=== PATIENT | male | born 1955 | race Caucasian/White ===

== ENCOUNTER 2019-08-16 15:48 | Emergency (ER) | payer OTHER ==
--- NOTE | 2019-08-16 18:45 | EDM.PDOC ---
ED HPI GENERAL MEDICAL PROBLEM - General Chief Complaint: Lower Extremity Injury/Pain Stated Complaint: SURGERY IN OCT NOW IN PAIN Time Seen by Provider: 08/16/19 18:38 Source of Information: Reports: Patient, Family, RN Notes Reviewed History Limitations: Reports: No Limitations - History of Present Illness INITIAL COMMENTS - FREE TEXT/NARRATIVE: 63-year-old gentleman presents emergency department today with concern about a blood clot, he is postop surgical hip replacement about 2months he developed pain in his calf just today and some swelling however all of his symptoms now have resolved at this time. He has no other complaints other than a cough which is new to him he denies any fevers shortness of breath or chest pain - Related Data Allergies Allergy/AdvReac Type Severity Reaction Status Date / Time No Known Allergies Allergy Verified 08/16/19 18:22 Home Meds: Home Meds NK [No Known Home Meds] 08/16/19 [History] Past Medical History - Past Surgical History Musculoskeletal Surgical History: Reports: Arthroscopic Knee, Hip Replacement, Other (See Below) Other Musculoskeletal Surgeries/Procedures:: Elizabeth fusion Social & Family History - Tobacco Use Smoking Status *Q: Never Smoker - Caffeine Use Caffeine Use: Reports: Soda - Recreational Drug Use Recreational Drug Use: No Review of Systems - Review of Systems Review Of Systems: See Below Constitutional: Reports: No Symptoms Respiratory: Reports: Cough Cardiovascular: Reports: No Symptoms Musculoskeletal: Reports: Leg Pain Skin: Reports: No Symptoms ED EXAM, GENERAL - Physical Exam Exam: See Below Free Text/Narrative:: Examination of the right lower extremity and on appreciate any erythema there is no edema the calf is not tight he has no pain with dorsiflexion pedal pulses +2 slight amount of pedal edema appreciated Exam Limited By: No Limitations General Appearance: Alert, WD/WN, No Apparent Distress Throat/Mouth: Normal Inspection, Normal Lips, Normal Teeth, Normal Gums, Normal Oropharynx, Normal Voice, No Airway Compromise Neck: Normal Inspection, Supple, Non-Tender, Full Range of Motion Respiratory/Chest: No Respiratory Distress, Lungs Clear, Normal Breath Sounds, No Accessory Muscle Use, Chest Non-Tender Cardiovascular: Regular Rate, Rhythm, No Murmur Course - Vital Signs Last Recorded V/S: Last Vital Signs Temp 98.1 F 08/16/19 18:24 Pulse 82 08/16/19 18:24 Resp 16 08/16/19 18:24 BP 161/88 H 08/16/19 18:24 Pulse Ox 98 08/16/19 18:24 - Orders/Labs/Meds Orders: Active Orders 24 hr Category Date Time Status Peripheral IV Care [RC] . DIRECTED Care 08/16/19 21:33 Active Iopamidol [Isovue-370 (76%)] Med 08/16/19 22:15 Active 100 ml IV . DIRECTED Sodium Chloride 0.9% [Normal Saline] 1,000 ml Med 08/16/19 21:45 Active IV ASDIRECTED Sodium Chloride 0.9% [Normal Saline] 80 ml Med 08/16/19 22:15 Active IV ASDIRECTED Sodium Chloride 0.9% [Saline Flush] Med 08/16/19 21:32 Active 10 ml FLUSH ASDIRECTED PRN Peripheral IV Insertion Adult [OM.PC] Urgent Oth 08/16/19 21:32 Ordered Medication Orders Sodium Chloride (Normal Saline) 1,000 mls @ 999 mls/hr IV ASDIRECTED SHEKHAR Sodium Chloride (Normal Saline) 80 mls @ 3 mls/sec IV ASDIRECTED SHEKHAR Last Admin: 08/16/19 22:14 Dose: 3 mls/sec Iopamidol (Isovue-370 (76%)) 100 ml IV . DIRECTED SHEKHAR Last Admin: 08/16/19 22:15 Dose: 100 ml Sodium Chloride (Saline Flush) 10 ml FLUSH ASDIRECTED PRN PRN Reason: Keep Vein Open Last Admin: 08/16/19 22:14 Dose: 10 ml Labs: Laboratory Tests 08/16/19 08/16/19 08/16/19 Range/Units 18:35 18:35 19:00 WBC 8.5 (4.5-11.0) K/uL RBC 5.46 (4.30-5.90) M/uL Hgb 15.5 H (12.0-15.0) g/dL Hct 49.1 (40.0-54.0) % MCV 90 (80-98) fL MCH 28 (27-31) pg MCHC 32 (32-36) % Plt Count 154 (150-400) K/uL Neut % (Auto) 64 (36-66) % Lymph % (Auto) 20 L (24-44) % [place] % (Auto) 12 H (2-6) % Eos % (Auto) 4 (2-4) % Baso % (Auto) 1 (0-1) % D-Dimer, Quantitative 2870 H (0.0-400.0) ng/mL Sodium 139 L (140-148) mmol/L Potassium 4.6 (3.6-5.2) mmol/L Chloride 103 (100-108) mmol/L Carbon Dioxide 29 (21-32) mmol/L Anion Gap 11.6 (5.0-14.0) mmol/L BUN 18 (7-18) mg/dL Creatinine 1.2 (0.8-1.3) mg/dL Est Cr Clr Drug Dosing 72.31 mL/min Estimated GFR (MDRD) > 60 (>60) Glucose 104 (74-106) mg/dL Calcium 8.7 (8.5-10.1) mg/dL Meds: Medications Generic Name Dose Route Start Last Admin Trade Name Freq PRN Reason Stop Dose Admin Sodium Chloride 1,000 mls @ 999 mls/hr 08/16/19 21:45 Normal Saline IV ASDIRECTED SHEKHAR Sodium Chloride 80 mls @ 3 mls/sec 08/16/19 22:15 08/16/19 22:14 Normal Saline IV 3 mls/sec ASDIRECTED SHEKHAR Administration Iopamidol 100 ml 08/16/19 22:15 08/16/19 22:15 Isovue-370 (76%) IV 100 ml . DIRECTED SHEKHAR Administration Sodium Chloride 10 ml 08/16/19 21:32 08/16/19 22:14 Saline Flush FLUSH 10 ml ASDIRECTED PRN Administration Keep Vein Open Discontinued Medications Generic Name Dose Route Start Last Admin Trade Name Freq PRN Reason Stop Dose Admin Apixaban 10 mg 08/16/19 21:33 Eliquis PO 08/16/19 21:34 ONETIME ONE Departure - Departure Time of Disposition: 23:08 Disposition: Home, Self-Care 01 Condition: Fair Clinical Impression: Pulmonary embolism Qualifiers: Pulmonary embolism type: multiple subsegmental (without acute cor pulmonale) Qualified Code(s): I26.94 - Multiple subsegmental pulmonary emboli without acute cor pulmonale - Discharge Information Referrals: PCP,None [Primary Care Provider] - Forms: ED Department Discharge Additional Instructions: Start Eliquis tomorrow twice a day follow-up and establish care 3 to 5 days for reevaluation, call or return to the emergency department worsening of symptoms Sepsis Event Note - Evaluation Sepsis Screening Result: No Definite Risk - Focused Exam Vital Signs: Vital Signs Temp Pulse Resp BP Pulse Ox 08/16/19 18:24 98.1 F 82 16 161/88 H 98 08/16/19 18:09 98.1 F 82 16 161/88 H 98 Date Exam was Performed: 08/16/19 Time Exam was Performed: 23:05 - My Orders Last 24 Hours: My Active Orders 08/16/19 21:32 Sodium Chloride 0.9% [Saline Flush] 10 ml FLUSH ASDIRECTED PRN Peripheral IV Insertion Adult [OM.PC] Urgent 08/16/19 21:33 Peripheral IV Care [RC] . DIRECTED 08/16/19 21:45 Sodium Chloride 0.9% [Normal Saline] 1,000 ml IV ASDIRECTED 08/16/19 22:15 Iopamidol [Isovue-370 (76%)] 100 ml IV . DIRECTED Sodium Chloride 0.9% [Normal Saline] 80 ml IV ASDIRECTED - Assessment/Plan Last 24 Hours: My Active Orders 08/16/19 21:32 Sodium Chloride 0.9% [Saline Flush] 10 ml FLUSH ASDIRECTED PRN Peripheral IV Insertion Adult [OM.PC] Urgent 08/16/19 21:33 Peripheral IV Care [RC] . DIRECTED 08/16/19 21:45 Sodium Chloride 0.9% [Normal Saline] 1,000 ml IV ASDIRECTED 08/16/19 22:15 Iopamidol [Isovue-370 (76%)] 100 ml IV . DIRECTED Sodium Chloride 0.9% [Normal Saline] 80 ml IV ASDIRECTED Plan: Assessment Acuity = acute Site and laterality = pulmonary embolism multiple largest left lower lobe also DVT saphenous vein Etiology = unknown postsurgical contributing Manifestations = cough, leg pain Location of injury = Home Lab values = d-dimer is elevated 2900, CBC and CMP unremarkable ultrasound is consistent with DVT and CT scan confirms pulmonary embolism Plan Started Eliquis at 10 mg p.o. twice daily for 7 days and then reduce to Eliquis 5 mg p.o.twice daily for remainder time 10 follow-up primary care 3 to 5 days for reevaluation duration of anticoagulation estimates 6 months due to extensiveness of thromboembolism This note was dictated using [employer] voice recognition software please call with any questions on syntax or grammar.
[2019-08-16] MEDS ORDERED: Sodium Chloride 0.9% 10 ML Syringe FLUSH PRN (21:32)
[2019-08-16] MEDS ORDERED: Apixaban 5 MG Tab PO ONE (21:33)
[2019-08-16] MEDS ORDERED: Sodium Chloride 0.9% 1,000 ML IV SCH (21:45)
--- NOTE | 2019-08-16 21:52 | CRLUS ---
INDICATION: Right leg pain. Postop with elevated D-dimer. COMPARISON: None available. FINDINGS: Ultrasound of the venous drainage of the right lower extremity was performed with a high-resolution linear transducer. There is occlusive deep venous thrombosis extending from the midportion of the right femoral vein inferiorly through the popliteal vein. There is also clot in the gastrocnemius vein. No evidence of deep venous thrombosis more superiorly or inferiorly. There is normal antegrade flow in the posterior tibial and peroneal veins. There is normal antegrade flow in the superior femoral vein into the common femoral vein. There is normal augmentation and compressibility of these veins. There is no sign of superficial venous thrombosis, with a patent, easily compressible right greater saphenous vein. The left common femoral vein is widely patent. IMPRESSION: Occlusive deep venous thrombosis extending from the midportion of the right femoral vein inferiorly through the popliteal vein. There is also thrombosis of the gastrocnemius veins. Dictated by Jass King MD @ Aug 16 2019 9:46PM Signed by Dr. Jass King @ Aug 16 2019 9:52PM
[2019-08-16] MEDS ORDERED: Iopamidol 755 Mg/ML 100 ML Bottle IV SCH (22:15)
[2019-08-16] MEDS ORDERED: Sodium Chloride 0.9% 80 ML IV SCH (22:15)
--- NOTE | 2019-08-16 22:42 | CRLCT ---
INDICATION: DVT, cough COMPARISON: None TECHNIQUE: Contrast enhanced axial CT imaging through the chest, optimized for assessment of the pulmonary arterial tree. 100 mL Isovue 370 contrast agent was administered intravenously. Sagittal and coronal reconstructions are provided. FINDINGS: There is adequate opacification of the pulmonary arterial tree. Multiple filling defects consistent with small thromboemboli are seen scattered throughout the segmental and subsegmental pulmonary arterial branches, worst in the left lower lobe. The main pulmonary is nondilated. The heart is nonenlarged. There is normal positioning of the interventricular septum. RV: LV ratio is 0.8, normal. There is no pericardial effusion. There is normal caliber of the thoracic aorta. There is no mediastinal lymphadenopathy. The lungs are clear. There is no pleural effusion or pneumothorax. The included osseous structures are unremarkable. No significant abnormality is demonstrated in the visualized upper abdomen. IMPRESSION: Scattered bilateral segmental and subsegmental thromboemboli, worst in the left lower lobe. No CT evidence of right heart strain. Please note that all CT scans at this facility use dose modulation, iterative reconstruction, and/or weight-based dosing when appropriate to reduce radiation dose to as low as reasonably achievable. Dictated by Tiffany Paulino MD @ Aug 16 2019 10:31PM Signed by Dr. Tiffany Paulino @ Aug 16 2019 10:41PM
== END 2019-08-17 00:10 | disposition home or self-care (01) ==
LOC: JP.ED 15:48
DX: I26.94 Multiple subsegmental thrombotic pulmonary emboli without acute cor pulmonale (principal)
CPT/HCPCS: 36415; 71275; 80048; 85025; 85379; 93971; 96360; 99284; A9270; J7030; J7050; Q9967

== ENCOUNTER 2019-09-30 07:44 | Day surgery (SDC) | payer OTHER ==
[2019-09-30] MEDS ORDERED: Dextrose 5%-Lactated Ringers 1,000 ML IV SCH (08:20)
[2019-09-30] MEDS ORDERED: Midazolam 1 MG/ML 2 ML SDV ONE (09:34)
[2019-09-30] MEDS ORDERED: Propofol 200 MG/20 ML SDV ONE (09:34)
[2019-09-30] MEDS ORDERED: fentaNYL 100 MCG/2 ML SDV ONE (09:34)
[2019-09-30] MEDS ORDERED: Meropenem 500 MG in Sodium Chloride 0.9% 50 ML IV ONE (10:00)
--- NOTE | 2019-10-09 22:12 | OR ---
DATE OF PROCEDURE: 09/30/2019 SURGEON: West Ballesteros MD PREOPERATIVE DIAGNOSIS: Indication for screening colonoscopy. POSTOPERATIVE DIAGNOSIS: Uncomplicated left colonic diverticulosis. OPERATIVE PROCEDURE: Screening colonoscopy. ANESTHESIA: IV sedation. INDICATION FOR PROCEDURE: This is a 64-year-old presenting for a screening colonoscopy. Potential risks of the procedure including bleeding and perforation were discussed, and the patient wishes to proceed. DETAILS OF PROCEDURE: The patient was taken to the operating room and placed in the left lateral decubitus position. IV sedation was administered, after which the initial digital rectal exam was performed which was unremarkable. Colonoscope was then passed into the rectum with retroflexion revealing uncomplicated hemorrhoidal columns. Scope was eventually passed to the level of the cecum. The prep was fairly good with only a small amount of liquid stool present. The patient had a moderate amount of left colonic diverticulosis which was otherwise uncomplicated, and apart from that, there were no areas of colitis and no areas of polyps or other signs of neoplasia. The scope was then withdrawn and the above findings were reconfirmed and the procedure was then concluded. The patient was taken to the recovery room in satisfactory condition. In the absence of personal or family history of colonic neoplasia, next colonoscope should be in 10 years. West Ballesteros MD /[id number]
== END 2019-09-30 11:49 | disposition home or self-care (01) ==
LOC: JP.SDS 07:44
PROVIDERS: ATTEND Surgery
DX: Z12.11 Encounter for screening for malignant neoplasm of colon (principal); K57.30 Diverticulosis of large intestine without perforation or abscess without bleeding; Z86.711 Personal history of pulmonary embolism; Z79.01 Long term (current) use of anticoagulants
CPT/HCPCS: 45378; J2185; J2250; J2704; J3010; J7050; J7121

== ENCOUNTER 2020-09-24 11:00 | Emergency (ER) | payer MEDICARE, OTHER ==
[2020-09-24] MEDS ORDERED: Sodium Chloride 0.9% 10 ML Syringe FLUSH PRN (11:23)
[2020-09-24] MEDS ORDERED: Ketorolac 30 MG/ML SDV IVPUSH ONE (11:23)
[2020-09-24] MEDS ORDERED: Ondansetron 4 MG/2 ML SDV IVPUSH ONE (11:23)
--- NOTE | 2020-09-24 11:25 | EDM.PDOC ---
ED HPI GENERAL MEDICAL PROBLEM - General Chief Complaint: Flank Pain Stated Complaint: SEVERE BACK PAIN/VOMITTING Time Seen by Provider: 09/24/20 11:21 Source of Information: Reports: Patient, Family, RN Notes Reviewed History Limitations: Reports: No Limitations - History of Present Illness INITIAL COMMENTS - FREE TEXT/NARRATIVE: 65-year-old gentleman presents emergency department a complaint of right flank pain, he states it started last night has been very intense with pain the pain will wax and wane he has no history of nephrolithiasis does feel nauseated and he is also postop 2 weeks hip surgery right side no fevers - Related Data Allergies Allergy/AdvReac Type Severity Reaction Status Date / Time No Known Allergies Allergy Verified 09/24/20 11:11 Home Meds: Home Meds Apixaban [Eliquis] 5 mg PO BID 09/28/19 [History] Past Medical History Cardiovascular History: Reports: Blood Clots/VTE/DVT Respiratory History: Reports: PE - Infectious Disease History Infectious Disease History: Reports: Chicken Pox, Measles - Past Surgical History Neurological Surgical History: Reports: Spinal Fusion Musculoskeletal Surgical History: Reports: Arthroscopic Knee, Hip Replacement, Other (See Below) Other Musculoskeletal Surgeries/Procedures:: cervical spinal fusion Social & Family History - Family History Family Medical History: No Pertinent Family History - Tobacco Use Tobacco Use Status *Q: Never Tobacco User - Caffeine Use Caffeine Use: Reports: Soda, Tea ED ROS GENERAL - Review of Systems Review Of Systems: See Below Constitutional: Reports: No Symptoms Respiratory: Reports: No Symptoms Cardiovascular: Reports: No Symptoms GI/Abdominal: Reports: Abdominal Pain, Nausea. Denies: Vomiting : Reports: Flank Pain ED EXAM, GI/ABD - Physical Exam Exam: See Below Exam Limited By: No Limitations General Appearance: Alert, Mild Distress Respiratory/Chest: No Respiratory Distress GI/Abdominal Exam: Normal Bowel Sounds, Soft, Non-Tender, No Distention Course - Vital Signs Last Recorded V/S: Last Vital Signs Temp 95.3 F L 09/24/20 11:18 Pulse 63 09/24/20 11:18 Resp 18 09/24/20 11:18 BP 144/64 H 09/24/20 11:18 Pulse Ox 95 09/24/20 11:18 - Orders/Labs/Meds Orders: Active Orders 24 hr Category Date Time Status Peripheral IV Care [RC] . DIRECTED Care 09/24/20 11:23 Active Sodium Chloride 0.9% [Saline Flush] Med 09/24/20 11:23 Active 10 ml FLUSH ASDIRECTED PRN Peripheral IV Insertion Adult [OM.PC] Urgent Oth 09/24/20 11:23 Ordered Medication Orders Sodium Chloride (Saline Flush) 10 ml FLUSH ASDIRECTED PRN PRN Reason: Keep Vein Open Last Admin: 09/24/20 11:34 Dose: 10 ml Documented by: TRANG Labs: Laboratory Tests 09/24/20 Range/Units 11:11 Urine Color Yellow (YELLOW) Urine Appearance Slightly cloudy A (CLEAR) Urine pH 5.5 (5.0-8.0) Ur Specific [place] >= 1.030 (1.008-1.030) Urine Protein Negative (NEGATIVE) mg/dL Urine Glucose (UA) Negative (NEGATIVE) mg/dL Urine Ketones Negative (NEGATIVE) mg/dL Urine Occult Blood Small H (NEGATIVE) Urine Nitrite Negative (NEGATIVE) Urine Bilirubin Negative (NEGATIVE) Urine Urobilinogen 0.2 (0.2-1.0) EU/dL Ur Leukocyte Esterase Negative (NEGATIVE) Urine RBC 5-10 H (0-5) Urine WBC Not seen (0-5) Ur Epithelial Cells Rare Amorphous Sediment Rare Urine Bacteria Few Urine Mucus Moderate Meds: Medications Generic Name Dose Route Start Last Admin Trade Name Freq PRN Reason Stop Dose Admin Sodium Chloride 10 ml 09/24/20 11:23 09/24/20 11:34 Saline Flush FLUSH 10 ml ASDIRECTED PRN Administration Keep Vein Open Discontinued Medications Generic Name Dose Route Start Last Admin Trade Name Freq PRN Reason Stop Dose Admin Ketorolac Tromethamine 30 mg 09/24/20 11:23 09/24/20 11:34 Toradol IVPUSH 09/24/20 11:24 30 mg ONETIME ONE Administration Ondansetron HCl 4 mg 09/24/20 11:23 09/24/20 11:34 Zofran IVPUSH 09/24/20 11:24 4 mg ONETIME ONE Administration Departure - Departure Time of Disposition: 12:33 Disposition: Home, Self-Care 01 Condition: Fair Clinical Impression: Nephrolithiasis - Discharge Information Instructions: Kidney Stones, [id number] Referrals: Pily Medina MD [Primary Care Provider] - Forms: ED Department Discharge Additional Instructions: Continue to push fluids, use Toradol for baseline pain control, use hydrocodone for breakthrough pain try and capture your stone turn this into your primary care for analysis follow-up with your primary care in 3 to 4 days if no improvement call return to the emergency department worsening of symptoms Sepsis Event Note (ED) - Evaluation Sepsis Screening Result: No Definite Risk - Focused Exam Vital Signs: Vital Signs Temp Pulse Resp BP Pulse Ox 09/24/20 11:18 95.3 F L 63 18 144/64 H 95 09/24/20 11:09 95.3 F L 63 18 144/64 H 95 - My Orders Last 24 Hours: My Active Orders 09/24/20 11:23 Peripheral IV Care [RC] . DIRECTED Sodium Chloride 0.9% [Saline Flush] 10 ml FLUSH ASDIRECTED PRN Peripheral IV Insertion Adult [OM.PC] Urgent - Assessment/Plan Last 24 Hours: My Active Orders 09/24/20 11:23 Peripheral IV Care [RC] . DIRECTED Sodium Chloride 0.9% [Saline Flush] 10 ml FLUSH ASDIRECTED PRN Peripheral IV Insertion Adult [OM.PC] Urgent Plan: Assessment Acuity = acute Site and laterality = nephrolithiasis right UV junction Etiology = unknown Manifestations = flank pain Location of injury = Home Lab values = urinalysis reveals small amount of blood 5-10 RBCs consistent hematuria, CT scan describes the 3 mm stone listed above Plan Good improvement with Zofran and Toradol prescription written for Toradol 10 mg 1 tab p.o. 3 times daily as needed total #20 and hydrocodone 5/325 1 tab p.o. 3 times daily as needed total #6 he will follow-up with primary care if not better strainer provided to capture the stone This note was dictated using [employer] voice recognition software please call with any questions on syntax or grammar.
--- NOTE | 2020-09-24 12:24 | CRLCT ---
INDICATION : Right flank pain TECHNIQUE : CT Scan of the abdomen and pelvis without contrast. Stone protocol COMPARISON : FINDINGS: Kidneys and bladder: RIGHT hydronephrosis. Streak artifact is present at the urinary bladder. Probable small calcification of near the RIGHT ureteral vesicle junction image 217 although extensive streak is present in this region but suspicious for a RIGHT ureteral vesicle junction calculus measuring approximately 3 mm. Small cysts from the left kidney and tiny nonobstructing calcification. Liver and spleen: No mass lesions. Extensive low dense probable fatty infiltration of the liver. Gallbladder: No calcified stones. Pancreas and adrenal glands: Unremarkable. GI tract: Unremarkable with incidental scattered diverticulosis of the sigmoid. Lymph nodes: No pathologic enlargement. Aorta: Atherosclerotic plaque normal caliber. Pelvis: No free fluid. Extensive streak artifact. Left large spermatic cord lipoma or fat within the left inguinal canal but no bowel loops. Fluid density 3.8 cm within the left anterior thigh musculature anterior to the LEFT proximal femur. Image 228 . Skeletal: Bilateral total hip arthroplasty. Intact hardware with heterotopic calcification. Lung bases: Lung bases are clear. IMPRESSION: 1. Approximately 3 millimeters distal obstructing RIGHT ureterovesical junction calculus although the region of the bladder in pelvis are obscured by metallic streak artifact. 2. Bilateral total hip arthroplasty. 3. Fluid density in the anterior proximal LEFT thigh could be postoperative seroma associated with the left hip arthroplasty or related to bursitis. Correlate with symptoms. Please note that all CT scans at this facility use dose modulation, iterative reconstruction, and/or weight-based dosing when appropriate to reduce radiation dose to as low as reasonably achievable. Dictated by Monster Doherty MD @ Sep 24 2020 12:14PM Signed by Dr. Monster Doherty @ Sep 24 2020 12:23PM
== END 2020-09-24 13:38 | disposition home or self-care (01) ==
LOC: JP.ED 11:00
DX: N13.2 Hydronephrosis with renal and ureteral calculous obstruction (principal); Z86.711 Personal history of pulmonary embolism; Z86.718 Personal history of other venous thrombosis and embolism; Z98.890 Other specified postprocedural states; Z79.01 Long term (current) use of anticoagulants
CPT/HCPCS: 74176; 81001; 96374; 96375; 99284; J1885; J2405

== ENCOUNTER 2024-07-05 12:23 | Emergency (ER) | payer MEDICARE, OTHER ==
[2024-07-05 12:46] LABS: BASOPHILS ABSOLUTE AUTO 0.07 K/uL (0.00-0.10); BASOPHILS PERCENT AUTO 1.2 % (0.1-1.3); EOSINOPHILS ABSOLUTE AUTO 0.14 K/uL (0.00-0.40); EOSINOPHILS PERCENT AUTO 2.4 % (0.0-5.4); HEMATOCRIT 47.6 % (38.4-49.7); HEMOGLOBIN 16.5 g/dL (12.9-16.9); IMMATURE GRAN ABSOLUTE AUTO 0.04 K/uL (0.00-0.23); IMMATURE GRAN PERCENT AUTO 0.7 % (0.0-0.7); LYMPHOCYTES ABSOLUTE AUTO 2.15 K/uL (0.8-3.3); LYMPHOCYTES PERCENT AUTO 36.3 % (11.4-47.7); MEAN CORPUSCULAR HEMOGLOBIN 30.5 pg (31.6-35.5); MEAN CORPUSCULAR HGB CONC 34.7 g/dL (31.6-35.5); MONOCYTES ABSOLUTE AUTO 0.72 K/uL (0.20-0.90); MONOCYTES PERCENT AUTO 12.1 % (3.3-12.6); NEUTROPHILS ABSOLUTE AUTO 2.81 K/uL (1.0-7.6); NEUTROPHILS PERCENT AUTO 47.3 % (40.0-78.1); PLATELET COUNT,PLT 203 K/uL (130-375); RED BLOOD CELL COUNT 5.41 M/uL (4.14-5.76); WHITE BLOOD CELL COUNT,WBC 5.9 K/uL (3.2-11.0)
[2024-07-05] MEDS: HYDROmorphone 1 MG/ML Syringe IVPUSH ONE (12:51)
[2024-07-05] MEDS: Sodium Chloride 0.9% 10 ML Syringe FLUSH PRN ×2 (12:52→13:00)
[2024-07-05] MEDS: Sodium Chloride 0.9% 60 ML IV ONE (13:00)
[2024-07-05] MEDS: Iopamidol 612 MG/ML 100 ML Bottle IV PRN (13:00)
[2024-07-05 13:01] LABS: CALCIUM 9.3 mg/dL (8.5-10.1); CREATININE 1.2 mg/dL (0.8-1.3); EST CRCL DRUG DOSING (CG) 67.55 mL/min; POTASSIUM,K 3.8 mmol/L (3.6-5.2)
[2024-07-05 13:03] LABS: ANION GAP 11.8 mmol/L (5.0-14.0)
[2024-07-05] MEDS: Ondansetron 4 MG Tab.DIS PO ONE (13:55)
== END 2024-07-05 14:23 | disposition home or self-care (01) ==
LOC: JP.ED 12:23
DX: R10.9 Unspecified abdominal pain (principal); W19.XXXA Unspecified fall, initial encounter
CPT/HCPCS: 36415; 74177; 80048; 85025; 96374; 99284; J1171; J3490; Q0162; Q9967

== ENCOUNTER 2025-04-11 15:28 | Emergency (ER) | payer MEDICARE ==
[2025-04-11 16:30] LABS: PLATELET COUNT,PLT 150 K/uL (130-375); RED BLOOD CELL COUNT 5.65 M/uL (4.14-5.76); WHITE BLOOD CELL COUNT,WBC 9.5 K/uL (3.2-11.0)
[2025-04-11 16:59] LABS: A/G RATIO 0.7 (1.2-2.2); ALANINE AMINOTRANSFERASE,ALT 28 U/L (12-78); ASPARTATE AMNIOTRANSFERASE,AST 19 U/L (15-37); BILIRUBIN TOTAL 0.7 mg/dL (0.2-1.0); BLOOD UREA NITROGEN,BUN 24 mg/dL (7-18); CARBON DIOXIDE,CO2 26 mmol/L (21-32); CHLORIDE,CL 95 mmol/L (100-108); CREATININE 1.3 mg/dL (0.8-1.3); EST CRCL DRUG DOSING (CG) 61.47 mL/min; ESTIMATED GFR 59 mL/min (>60); POTASSIUM,K 4.2 mmol/L (3.6-5.2); PRO B-TYPE NATRIUR PEPT,BNPPRO 442 pg/mL (5-125); PROTEIN TOTAL,TP 8.2 g/dL (6.4-8.2); SODIUM,NA 132 mmol/L (140-148)
[2025-04-11 17:02] LABS: GLUCOSE RANDOM 472 mg/dL (74-106)
[2025-04-11 17:19] LABS: ATYPICAL LYMPHOCYTES FEW; LYMPHOCYTES ABSOLUTE MAN 3.61 K/uL (0.8-3.3); LYMPHOCYTES PERCENT MAN 38 % (24-44); METAMYELOCYTE ABSOLUTE MAN 0.10 K/uL; METAMYELOCYTE PERCENT MAN 1 %; MONOCYTES ABSOLUTE MAN 1.33 K/uL (0.20-0.90); MONOCYTES PERCENT MAN 14 % (2-6); NEUTROPHILS ABSOLUTE MAN 4.47 K/uL (1.0-7.6); SEG NEUTROPHILS PERCENT MAN 47 % (36-66)
[2025-04-11] MEDS: Iopamidol 755 Mg/ML 100 ML Bottle IV SCH (17:53)
== END 2025-04-11 19:43 | disposition home or self-care (01) ==
LOC: JP.ED 15:28
DX: J39.8 Other specified diseases of upper respiratory tract (principal); B97.89 Other viral agents as the cause of diseases classified elsewhere; Z79.01 Long term (current) use of anticoagulants; Z79.890 Hormone replacement therapy; Z79.899 Other long term (current) drug therapy
CPT/HCPCS: 36415; 71045; 71275; 80053; 83880; 85025; 93005; 99285; A9270; Q9967